=== PATIENT | male | born 1975 | race African-American/Black ===

== ENCOUNTER 2025-04-21 20:29 | Emergency (ER) | payer BC, OTHER, SELFPAY ==
[2025-04-21 20:35] VITALS: BP 170/103; PULSE 66; RESP 17; TEMP 36.6; O2SAT 98; BMI 44.6
--- NOTE | 2025-04-21 20:40 | EKG_ITS ---
[address] [address] Test Date: 2025-04-21 Pat Name: Bruce Posadas Department: Room: Gender: Male [employer] In Machine Operator: ADDY : 1975 Requested By: Order Number: [id number] Reading MD: Fredy Streeter Measurements Intervals [place] Rate: 61 P: 11 [place]: 192 QRS: 2 QRSD: 86 T: 151 QT: 438 QTc: 440 Interpretive Statements Normal sinus rhythm Left ventricular hypertrophy with repolarization abnormality ( R in aVL , Alberto product ) Electronically Signed On 04-30-2025 13:52:18 PDT by Fredy Streeter
--- NOTE | 2025-04-21 20:40 | DI.RAD.S_ITS ---
PROCEDURE: XR CHEST 1V INDICATIONS: Chest Pain TECHNIQUE: One view of the chest was acquired. COMPARISON: None. FINDINGS: Surgical changes and devices: None. Lungs and pleura: Lungs are clear. No pleural effusions or pneumothorax. Mediastinum: Mediastinal contours appear normal. Heart size is normal. Bones and chest wall: No suspicious bony lesions. Overlying soft tissues appear unremarkable. IMPRESSION: No acute pulmonary process. Dictated by: Emiliana Reyez M.D. on 04/21/2025 at 21:40 Approved by: Emiliana Reyez M.D. on 04/21/2025 at 21:41
[2025-04-21 21:09] LABS: Add Manual Diff / Slide Review NO; Hematocrit 44.7 % (41-53); Hemoglobin 14.6 g/dL (13.5-17.5); Lymphocytes Absolute Auto 1400 /uL (1100-4500); Mean Corpuscular HGB Conc 32.8 % (30-36); Mean Corpuscular Hemoglobin 27.6 PG (26-34); Mean Corpuscular Volume 84.2 fL (80-100); Platelet Count 288 X10^3/uL (150-400)
[2025-04-21 21:19] LABS: INR 1.0 (0.9-1.3); Prothrombin Time 11.7 SECONDS (9.4-12.5)
[2025-04-21 21:22] LABS: PTT Partial Thromboplastin Tim 30 SECONDS (25.1-36.5)
[2025-04-21 21:23] LABS: Alanine Aminotransferase 21 IU/L (<50); Albumin 4.2 g/dL (3.5-5.0); Albumin Globulin Ratio 1.2 (1.0-2.8); Alkaline Phosphatase 48 U/L (38-126); Blood Urea Nitrogen 13 mg/dL (9-20); Calcium 8.9 mg/dL (8.4-10.2); Carbon Dioxide 26 mmol/L (22-32); Chloride 107 mmol/L (98-107); Creatine Kinase 129 U/L (55-170); Estimated Glomerular Filt Rate > 60 mL/min (>60); Globulin 3.4 g/dL (1.7-4.1); Glucose 229 mg/dL (70-99); HEMOLYSIS 34 (0-50); Lipase 53 U/L (23-300); Magnesium 2.2 mg/dL (1.6-2.3); Potassium 4.2 mmol/L (3.4-5.1); Sodium 139 mmol/L (137-145); Total Protein 7.6 g/dL (6.3-8.2)
[2025-04-21 21:34] LABS: NT-proBNP (BNP-Adult 18+) 465 pg/mL (<125); Troponin I < 0.012 ng/mL (0.01-0.034)
[2025-04-21 23:57] LABS: Troponin I < 0.012 ng/mL (0.01-0.034)
[2025-04-22 01:32] VITALS: BP 154/96; PULSE 55; O2SAT 99
--- NOTE | 2025-04-22 02:02 | ED.CHESTPAIN ---
HPI - Chest Pain General Chief Complaint: Chest Pain Stated Complaint: ChestPain Time Seen by Provider: 04/21/25 20:48 Source: patient Mode of arrival: Ambulatory History of Present Illness HPI narrative: 42-year-old gentleman history of dyslipidemia type 2 diabetic hypertension presents with chest tightness and pain radiating up to the throat region since last Saturday while he did not do anything about it and came in to be evaluated today. 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 He had a cardiac catheterization 3 years ago up in [place] for which it did not show any acute blockage and no acute intervention. Other than what is stated 14 point review of system is negative. Related Data Home Medications ?Medication ?Instructions ?Recorded ?Confirmed amlodipine 5 mg tablet 5 mg PO DAILY 04/21/25 04/21/25 empagliflozin 25 mg tablet 25 mg PO DAILY 04/21/25 04/21/25 (Jardiance) escitalopram oxalate 10 mg tablet 10 mg PO DAILY 04/21/25 04/21/25 insulin lispro 100 unit/mL 1 sliding scale dose SUBCUT 04/21/25 04/21/25 subcutaneous cartridge (Humalog USEASDIRECTD U-100 Insulin) metformin 1,000 mg tablet 1,000 mg PO DAILY 04/21/25 04/21/25 pravastatin 40 mg tablet 40 mg PO BEDTIME 04/21/25 04/21/25 propranolol 20 mg tablet 20 mg PO Q8HR 04/21/25 04/21/25 tadalafil 20 mg tablet (Cialis) 20 mg PO DAILY PRN kidney 04/21/25 04/21/25 Review of Systems Review of Systems ROS Unobtainable: All systems reviewed & are unremarkable except as noted in HPI and below Patient History Smoking Status: Never smoker Exam Narrative Exam Narrative: GENERAL: [50] year old patient appears stated age. Well-developed patient, in mild distress. HEAD: Atraumatic. Normocephalic. EYES: Pupils equal round and reactive. Extraocular motions intact. No scleral icterus. No injection or drainage. NECK: Trachea midline. Non tender CARDIOVASCULAR: Regular rate and rhythm without murmurs, gallops, or rubs. RESPIRATORY: Clear to auscultation. Breath sounds equal bilaterally. No wheezes, rales, or rhonchi. GASTROINTESTINAL: Abdomen soft, non-tender, nondistended. EXTREMITIES: No edema or joint tenderness. BACK: Nontender without deformity or crepitance. No flank tenderness. NEURO: AOx3. SKIN: No rash or erythema of visible areas Initial Vital Signs Initial Vital Signs: Vital Signs Temperature 98 F 04/21/25 20:35 Pulse Rate 66 04/21/25 20:35 Respiratory Rate 17 04/21/25 20:35 Blood Pressure 170/103 H 04/21/25 20:35 Pulse Oximetry 98 04/21/25 20:35 Oxygen Delivery Method Room Air 04/21/25 20:35 Scores HEART Score Heart Score history: Slightly Suspicious Heart Score EKG: Normal Heart Score Age: 45-64 years old Heart Score risk factors: > 3 risk factors or hx of atherosclerotic disease Heart Score troponin: < or = to normal limit Heart Score Total: 3 Course Orders Ordered: ED Orders 04/21/25 20:40 XR chest 1V Stat EKG-12 Lead Stat 04/21/25 20:50 Complete Blood Count AUTO DIFF Stat Comprehensive Metabolic Panel Stat Lipase Stat Magnesium Stat NT-proBNP (BNP-Adult 18+) Stat PTT Partial Thromboplastin Gabriel Stat Prothrombin Time INR Stat Troponin & CK Cardiac Panel Stat 04/21/25 23:18 Troponin I Stat Discontinued Medications Aspirin (Aspirin 81 Mg Chew Tab) 324 mg PO NOW ONE Stop: 04/21/25 20:41 Vital Signs Vital signs: Vital Signs - 8 hr 04/21/25 20:35 04/22/25 01:32 04/22/25 01:32 Temperature 98 F Pulse Rate 66 55 L Respiratory Rate 17 Blood Pressure 170/103 H 154/96 H Pulse Oximetry 98 99 Oxygen Delivery Method Room Air Room Air MDM - Chest Pain Lab Data 04/21/25 20:50 04/21/25 20:50 Labs: Lab Results 04/21/25 04/21/25 Range/Units 20:50 23:18 WBC 5.6 (4.5-11.0) X10^3/uL RBC 5.30 (4.5-5.9) X10^6/uL Hgb 14.6 (13.5-17.5) g/dL Hct 44.7 (41-53) % MCV 84.2 (80-100) fL MCH 27.6 (26-34) PG MCHC 32.8 (30-36) % RDW 14.4 (11.6-14.8) % Plt Count 288 (150-400) X10^3/uL Neut % (Auto) 62.5 (50-75) % Lymph % (Auto) 24.3 L (25-40) % [place] % (Auto) 8.1 (3-14) % Eos % (Auto) 4.4 H (2-4) % Baso % (Auto) 0.7 (0-2) % Neut # (Auto) 3500 (3431-1600) /uL Lymph # (Auto) 1400 (2251-0280) /uL [place] # (Auto) 500 (0-900) /uL Eos # (Auto) 200 (0-450) /uL Baso # (Auto) 0 (0-100) /uL PT 11.7 (9.4-12.5) SECONDS INR 1.0 (0.9-1.3) APTT 30 (25.1-36.5) SECONDS Sodium 139 (137-145) mmol/L Potassium 4.2 (3.4-5.1) mmol/L Chloride 107 (98-107) mmol/L Carbon Dioxide 26 (22-32) mmol/L BUN 13 (9-20) mg/dL Creatinine 1.13 (0.66-1.25) mg/dL Estimated GFR > 60 (>60) mL/min BUN/Creatinine Ratio 11.5 (6-22) Glucose 229 H (70-99) mg/dL Calcium 8.9 (8.4-10.2) mg/dL Magnesium 2.2 (1.6-2.3) mg/dL Total Bilirubin 0.6 (0.2-1.3) mg/dL AST 26 (17-59) IU/L ALT 21 (<50) IU/L Alkaline Phosphatase 48 (38-126) U/L Total Creatine Kinase 129 (55-170) U/L Troponin I < 0.012 < 0.012 (0.01-0.034) ng/mL NT-Pro-B Natriuret Pep 465 H (<125) pg/mL Total Protein 7.6 (6.3-8.2) g/dL Albumin 4.2 (3.5-5.0) g/dL Globulin 3.4 (1.7-4.1) g/dL Albumin/Globulin Ratio 1.2 (1.0-2.8) Lipase 53 (23-300) U/L Imaging Data Chest x-ray: Radiologist's Impression: [address] [address] XRay Report Signed Patient: Bruce Posadas MR#: [id number] : 1975 Acct:[id number] Age/Sex: 50 / M Date of Service: 04/21/25 Loc: ED Accession Number: [id number] Procedure: XR chest 1V Ordering Provider: Dino Snider D.O. PROCEDURE: XR CHEST 1V INDICATIONS: Chest Pain TECHNIQUE: One view of the chest was acquired. COMPARISON: None. FINDINGS: Surgical changes and devices: None. Lungs and pleura: Lungs are clear. No pleural effusions or pneumothorax. Mediastinum: Mediastinal contours appear normal. Heart size is normal. Bones and chest wall: No suspicious bony lesions. Overlying soft tissues appear unremarkable. IMPRESSION: No acute pulmonary process. Dictated by: Emiliana Reyez M.D. on 04/21/2025 at 21:40 ECG Data Interpretation: NSR HR 61 VA 192 QRS [address]-t wave change No previous EKG to compare against MDM Narrative Medical decision making narrative: Vital signs, nurse triage note, medication list, previous ER visits, and all imaging studies reviewed. Patient given GI cocktail here. Two sets troponin normal BNP 465. Chest x-ray showed no acute process. Heart score of 3. Differential diagnosis STEMI NSTEMI unstable angina GERD anxiety esophageal spasm. DC home return with new or worsening symptoms and to follow up PCP 1-2 days. Discharge Plan Departure Patient Disposition: Home Clinical Impression: Chest pain Instructions: DI for Chest Pain Activity Restrictions/Additional Instructions: Return with new or worsening symptoms. Follow up PCP in 1-2 days for re-evaluation. Prescriptions: No Action escitalopram oxalate 10 mg tablet 10 mg PO DAILY propranolol 20 mg tablet 20 mg PO Q8HR tadalafil [Cialis] 20 mg tablet 20 mg PO DAILY PRN (Reason: kidney) Rx Instructions: administer approximately 30min before sexual activity; do not use more than 1 dose per 24hrs Jardiance 25 mg tablet 25 mg PO DAILY Humalog U-100 Insulin 100 unit/mL cartridge 1 sliding scale dose SUBCUT USEASDIRECTD pravastatin 40 mg tablet 40 mg PO BEDTIME amlodipine 5 mg tablet 5 mg PO DAILY metformin 1,000 mg tablet 1,000 mg PO DAILY Stand Alone Forms: Patient Portal/API
[2025-04-22] MEDS: MAG HYDROX/ALUMINUM/SIMETH SUS 30 ML, LIDOCAINE VISCOUS 2% 15 ML PO (02:40)
== END 2025-04-22 02:48 | disposition home or self-care (01) ==
PROVIDERS: Emergency Provider Family Medicine
DX: R07.9 Chest pain, unspecified (principal)
CPT/HCPCS: 36415; 71045; 80053; 82550; 83690; 83735; 83880; 84484; 85025; 85610; 85730; 93005; 99284